=== PATIENT | male | born 1945 | race Caucasian/White ===

== ENCOUNTER 2017-07-30 13:26 | Outpatient (CLI) | payer MEDICARE ==
--- NOTE | 2017-07-30 14:33 | CT ---
NONCONTRAST HEAD CT: HISTORY: Fall. Headache. COMPARISON: None. TECHNIQUE: Noncontrast head CT is performed from the skull base to the skull base to the vertex. FINDINGS: No parenchymal hemorrhage. No extraaxial hematoma. No midline shift. Basilar cisterns are patent. Brain volume, age appropriate. Cortical ventura-white matter differentiation is preserved. Ventricles and sulci are patent and symmetric. Calvarium is intact. Adequate aeration of the sinuses and mastoid air cells. There is cavernous car otid atherosclerosis. IMPRESSION: 1. No acute intracranial process. 2. No intracranial posttraumatic sequelae. POS: [facility]
== END 2017-07-30 13:27 | disposition home or self-care (01) ==
LOC: TBSIIMAG 13:26
PROVIDERS: ATTEND Neurological Surgery
DX: R51 Headache (principal)
CPT/HCPCS: 70450

== ENCOUNTER 2020-02-24 15:04 | Outpatient (CLI) | payer MEDICARE ==
--- NOTE | 2020-02-24 17:48 | MRI ---
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 Additional thin slices through orbits. FINDINGS: The ventricles are normal in size and configuration. There is no midline shift or any other evidence of mass effect. There is no extra-axial fluid collection. There is no intra-axial signal abnormality, abnormal enhancement, mass, recent hemorrhage, or restricted diffusion. Optic nerves are bilaterally symmetrically normal in size, with normal signal and no abnormal enhancement. There is no abnormal intraorbital enhancement, mass, or edema. Extraocular muscles are symmetrical and normal. Bilateral globes are symmetrical in shape and size with no mass, abnormal signal, or abnormal enhancement. Optic chiasm is normal. Orbital apices and cavernous sinuses are normal. No suprasellar mass. IMPRESSION: Normal
== END 2020-02-24 15:05 | disposition home or self-care (01) ==
LOC: SCSMRI 15:04
PROVIDERS: ATTEND Neurological Surgery
DX: H47.10 Unspecified papilledema (principal)
CPT/HCPCS: 70553; 82565